=== PATIENT | female | born 1995 | race Asian ===

== ENCOUNTER → 2018-05-16 15:17 | Emergency (ER) | payer OTHER ==
[2018-05-16 15:29] VITALS: BP 133/85
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
== END | disposition home or self-care (01) ==
LOC: ED 15:17
DX: S16.1XXA Strain of muscle, fascia and tendon at neck level, initial encounter (principal); V49.9XXA Car occupant (driver) (passenger) injured in unspecified traffic accident, initial encounter; Y92.9 Unspecified place or not applicable
CPT/HCPCS: 96374; 96375; 99281; 99282